=== PATIENT | male | born 1990 | race Caucasian/White ===

== ENCOUNTER 2018-09-08 10:23 | Emergency (ER) | payer OTHER ==
[~2018-09-08] VITALS: Ht 177.8 cm; Wt 93.7 kg
[2018-09-08 10:24] VITALS: BP 174/86; PULSE 102; RESP 18; Ht 177.8 cm; Wt 93.7 kg
[2018-09-08] MEDS ORDERED: KETOROLAC 30 MG INJ IM STA (11:05)
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
[2018-09-08] MEDS ORDERED: PRED20TA PO (11:20)
[2018-09-08] MEDS ORDERED: HYDR-4011 PO (11:20)
[2018-09-08] MEDS ORDERED: DEXAMETHASONE 10 MG/ML 1 ML INJ IM ONE (11:30)
== END 2018-09-08 11:59 | disposition home or self-care (01) ==
LOC: FTE 10:23
DX: M54.5 Low back pain (principal)
CPT/HCPCS: J1100; J1885; 96372

== ENCOUNTER 2018-12-09 19:08 | Emergency (ER) | payer OTHER ==
[~2018-12-09] VITALS: Ht 180.3 cm; Wt 88.0 kg
[~2018-12-09 19:08] MED LIST: HYDR-4011 PO; PRED20TA PO
[2018-12-09 19:17] VITALS: Ht 180.3 cm; Wt 88.0 kg
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
[2018-12-09] MEDS ORDERED: POTASSIUM CHLORIDE (SR) 20 MEQ TAB PO STA (20:52)
[2018-12-09] MEDS ORDERED: DIPHENHYDRAMINE 50 MG INJ ONE (20:57)
[2018-12-09] MEDS ORDERED: HALOPERIDOL 5 MG INJ ONE (20:58)
[2018-12-09] MEDS ORDERED: LORAZEPAM 2 MG INJ ONE (20:58)
[2018-12-09] MEDS ORDERED: DIPHENHYDRAMINE 50 MG INJ IM ONE (21:00)
[2018-12-09] MEDS ORDERED: HALOPERIDOL 5 MG INJ IM ONE (21:00)
[2018-12-09] MEDS ORDERED: LORAZEPAM 2 MG INJ IM ONE (21:00)
[2018-12-10] MEDS ORDERED: HALOPERIDOL 5 MG INJ IM STA (11:13)
[2018-12-10] MEDS ORDERED: LORAZEPAM 2 MG INJ IM STA (11:13)
[2018-12-10] MEDS ORDERED: LORAZEPAM 2 MG INJ ONE (11:15)
[2018-12-10] MEDS ORDERED: DIPHENHYDRAMINE 50 MG INJ ONE (11:15)
[2018-12-10] MEDS ORDERED: HALOPERIDOL 5 MG INJ ONE (11:15)
--- NOTE | 2018-12-10 11:19 | EN ---
Date/Time of Note Date/Time of Note DATE: 12/10/18 TIME: 11:18 ER Progress Note Time 11:19 GURDEEP VALLADARES MD Dec 10, 2018 11:19
[2018-12-10] MEDS ORDERED: DIPHENHYDRAMINE 50 MG INJ IM ONE (11:30)
[2018-12-10 11:47] VITALS: BP 162/81; PULSE 81; RESP 22
== END 2018-12-10 11:55 ==
LOC: E/R 19:08
DX: F29 Unspecified psychosis not due to a substance or known physiological condition (principal); F19.20 Other psychoactive substance dependence, uncomplicated; E87.6 Hypokalemia; N28.9 Disorder of kidney and ureter, unspecified; R40.2142 Coma scale, eyes open, spontaneous, at arrival to emergency department; R40.2242 Coma scale, best verbal response, confused conversation, at arrival to emergency department; R40.2362 Coma scale, best motor response, obeys commands, at arrival to emergency department
CPT/HCPCS: 80053; 80307; 81001; 82550; 85025; 96372; J1200; J1630; J2060; Z7502